=== PATIENT | female | born 1995 | race African-American/Black ===

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

== ENCOUNTER 2019-05-21 07:45 | Inpatient (IN) | payer OTHER ==
[2019-05-21] MEDS ORDERED: diphenhydrAMINE 50 MG/ML 1 ML VIAL IVP PRN ×2 (07:46)
[2019-05-21] MEDS ORDERED: diphenhydrAMINE 50 MG CAP PO PRN (07:46)
[2019-05-21] MEDS ORDERED: diphenhydrAMINE 25 MG CAP PO PRN (07:46)
[2019-05-21] MEDS ORDERED: HYDROCORTISONE 2.5% RECTAL CREAM 30 GM TUBE RECTAL PRN (07:46)
[2019-05-21] MEDS ORDERED: LANOLIN CREAM 5 GM TUBE TOPICAL PRN (07:46)
[2019-05-21] MEDS ORDERED: SIMETHICONE 80 MG CHEWABLE PO PRN (07:46)
[2019-05-21] MEDS ORDERED: ZOLPIDEM 5 MG TAB PO PRN (07:46)
[2019-05-21] MEDS ORDERED: BENZOCAINE/MENTHOL SPRAY 1 GM/SPRAY AEROSOL TOPICAL PRN (07:46)
[2019-05-21] MEDS ORDERED: WITCH HAZEL 1 EACH MED..PAD TOPICAL PRN (07:46)
[2019-05-21] MEDS ORDERED: OXYTOCIN 20 UNITS/1000 ML NS 1,000 ML IV SCH (08:00)
[2019-05-21] MEDS ORDERED: METHYLERGONOVINE 0.2 MG/ML 1 ML AMP IM PRN (08:05)
[2019-05-21] MEDS ORDERED: CARBOPROST TROMETHAMINE 250 MCG/ML 1 ML AMP IM PRN (08:05)
[2019-05-21] MEDS ORDERED: OXYTOCIN 10 UNIT/ML 1 ML VIAL IM PRN (08:05)
[2019-05-21] MEDS ORDERED: TERBUTALINE 1 MG/ML VIAL SQ PRN (08:05)
[2019-05-21] MEDS ORDERED: LIDOCAINE 0.5% (PF) 5 MG/ML (50 ML SDV) SQ PRN (08:05)
--- NOTE | 2019-05-21 08:05 | P.HPOB ---
History of Present Illness H&P Date: 05/21/19 Chief Complaint: Labor at term This is a 23-year-old 3 para 1011 woman who reports an estimated due date of 05/23/2019 who presents by EMS in advanced active labor. She reports onset of contractions several hours ago. She reports rupture of membranes at 6 AM. She has had no care throughout her . She did have an ultrasound at [address] a gave her due date of 05/23. She reports one previous term vaginal delivery 2 years ago and one miscarriage. She admits to marijuana use in the and tobacco. No alcohol use. She denies any chronic medical problems. Past Medical History Past Medical History: Asthma History of Any Multi-Drug Resistant Organisms: None Reported Past Surgical History: No Surgical Hx Reported Past Psychological History: No Psychological Hx Reported Smoking Status: Current every day smoker Past Alcohol Use History: Occasional Past Drug Use History: Marijuana Medications and Allergies Home Medications Medication Instructions Recorded Confirmed Type No Known Home Medications 05/21/19 05/21/19 History Allergies Allergy/AdvReac Type Severity Reaction Status Date / Time No Known Allergies Allergy Verified 05/21/19 07:51 Exam Intake and Output 05/20/19 05/21/19 05/21/19 22:59 06:59 14:59 Other: Weight 91.626 kg Visibly gravid actively laboring female. Cervix 9 cm dilated. Delivery eminent. Assessment and Plan (1) Insufficient care Current Visit: Yes Status: Acute Code(s): O09.30 - SUPRVSN OF PREG W INSUFFICIENT ANTENAT CARE, UNSP TRIMESTER SNOMED Code(s): 5214135777103 (2) Spontaneous onset of labor Current Visit: Yes Status: Acute Code(s): GPT5774 - SNOMED Code(s): 51764633 (3) Spontaneous rupture of membranes Current Visit: Yes Status: Acute Code(s): TEA5338 - SNOMED Code(s): 435568388 Plan: Admitted in active labor. Anticipate normal spontaneous vaginal delivery.
--- NOTE | 2019-05-21 08:07 | P.PROBDLV ---
Vaginal Delivery Note - . Vaginal Delivery Note: Findings: Female in the vertex presentation dictation with Apgars of 7 at 1 minute and 9 at 5 minutes. Weight pending. First-degree perineal laceration. Intact, three-vessel cord placenta noted. Terminal meconium. EBL 150 mL's. Delivery summary: This is a 23-year-old 3 para 1011 woman who presented on at term in advanced active labor having had spontaneous rupture of membranes. She's had no care. History significant for previous spontaneous vaginal delivery. Following admission she was noted to be 9 cm dilated with active urge to push. She was able to be repositioned on the bed and with uncontrolled effort the head did deliver from the right occiput anterior position. The anterior followed by the posterior shoulders were delivered with the maternal modified Yazmin position. The resting delivered spontaneously onto the field. The nose and mouth were bulb suctioned. Cord was clamped and cut. Apgars were 7 at 1 minute and 9 at 5 minutes. Weight pending. An intact, three-vessel cord placenta was then expressed after a short third stage. The patient received Pitocin intramuscularly. The uterus was massaged and was noted to firm at the level of the umbilicus. The perineum was inspected and a first- degree laceration that was bleeding was noted. This was infused with lidocaine and repaired with a single stitch of 3-0 Vicryl suture. The rest of the finding was inspected and no further lacerations were noted.
[2019-05-21] MEDS ORDERED: LACTATED RINGERS 1,000 ML IV SCH (08:15)
[2019-05-21 08:43] LABS: Appearance,Urine Clear (Clear); Bilirubin,Urine Negative (Negative); Blood,Urine Moderate (Negative); Color,Urine Yellow; Glucose,Urine (UA) Negative (Negative); Ketones,Urine 2+ (Negative); Leukocyte Esterase,Urine Small (Negative); Mucus,Urine Few /hpf; Nitrite,Urine Negative (Negative); Protein,Urine 1+ (Negative); RBC,Urine 146 /hpf (0-5); Specific Gravity,Urine 1.028 (1.001-1.035); Squamous Epithelial Cell,Urine 1 /hpf (0-4); Urobilinogen,Urine <2.0 mg/dL (<2.0); WBC,Urine 1 /hpf (0-5)
[2019-05-21 08:46] LABS: Amphetamine Screen,Urine Not Detected (NotDetected); Barbiturate Screen,Urine Not Detected (NotDetected); Benzodiazepines Screen,Urine Not Detected (NotDetected); Cocaine Screen,Urine Not Detected (NotDetected); Methadone Screen, Urine Not Detected (NotDetected); Opiate Screen,Urine Not Detected (NotDetected); Oxycodone Screen, Urine Not Detected (NotDetected); Phencyclidine Screen,Urine Not Detected (NotDetected); Tricyclic Antidepressant,Urine Not Detected (NotDetected); Urn Cannabinoid Scrn Detected (NotDetected)
[2019-05-21] MEDS: IBUPROFEN 600 MG TAB PO PRN ×2 (08:58→20:12)
[2019-05-21] MEDS: ACETAMINOPHEN TAB 325 MG TAB PO PRN (10:14)
[2019-05-21] MEDS: SENNOSIDES-DOCUSATE SODIUM 1 EACH TAB PO SCH ×2 (10:18→20:11)
[2019-05-21 10:45] LABS: Glucose,Whole Blood 106 mg/dL (75-99)
[2019-05-21 21:03] LABS: Hepatitis B Surface Antigen Non-Reactive (Non-Reactive)
[2019-05-22] MEDS: IBUPROFEN 600 MG TAB PO PRN ×2 (04:55→17:02)
[2019-05-22 07:53] LABS: Basophils # (A) 0.1 k/uL (0-0.2); Basophils % (A) 1 %; Eosinophils # (A) 0.1 k/uL (0-0.7); Eosinophils % (A) 1 %; HCT 31.6 % (34.0-46.0); HGB 9.8 gm/dL (11.4-16.0); Hypochromasia Slight; Lymphocytes # (A) 1.5 k/uL (1.0-4.8); Lymphocytes % (A) 20 %; MCH 25.3 pg (25.0-35.0); MCHC 31.2 g/dL (31.0-37.0); MCV 81.1 fL (80.0-100.0); Mean Platelet Volume 9.2; Monocytes # (A) 0.4 k/uL (0-1.0); Monocytes % (A) 6 %; Neutrophils # (A) 5.1 k/uL (1.3-7.7); Neutrophils % (A) 69 %; Platelet Count 209 k/uL (150-450); RBC 3.89 m/uL (3.80-5.40); RDW 14.7 % (11.5-15.5); WBC 7.4 k/uL (3.8-10.6)
[2019-05-22] MEDS: SENNOSIDES-DOCUSATE SODIUM 1 EACH TAB PO SCH ×2 (08:11→21:37)
[2019-05-22] MEDS: ACETAMINOPHEN TAB 325 MG TAB PO PRN ×3 (08:11→21:37)
[2019-05-22 09:43] VITALS: RESP 18
--- NOTE | 2019-05-22 13:28 | P.PNOBGVD ---
Subjective - Subjective Principal diagnosis: PPD 1 Interval history: Feeling well, moderate lochia and cramping Patient reports: Reports appetite normal, Reports voiding normally, Reports pain well controlled, Reports ambulating normally : doing well Objective - Latest Vital Signs Latest vital signs: Vital Signs Temp Pulse Resp BP 05/22/19 08:00 98.0 F 80 18 114/68 05/21/19 23:50 98.1 F 84 16 120/76 05/21/19 20:00 98.6 F 94 16 90/45 05/21/19 15:13 97.5 F L 77 18 124/68 Intake and Output 05/21/19 05/22/19 05/22/19 22:59 06:59 14:59 Other: # Voids 1 1 - Exam Extremities: Present: edema Abdomen: Present: normal appearance, soft. Absent: tenderness Uterus: Present: normal, firm - Labs Labs: Abnormal Lab Results - Last 24 Hours (Table) 05/22/19 Range/Units 06:59 Hgb 9.8 L (11.4-16.0) gm/dL Hct 31.6 L (34.0-46.0) % Assessment and Plan (1) Insufficient care Current Visit: Yes Status: Acute Code(s): O09.30 - SUPRVSN OF PREG W INSUFFICIENT ANTENAT CARE, UNSP TRIMESTER SNOMED Code(s): 7289872172422 (2) Spontaneous onset of labor Current Visit: Yes Status: Acute Code(s): XMJ4312 - SNOMED Code(s): 84937393 (3) Spontaneous rupture of membranes Current Visit: Yes Status: Acute Code(s): UFK9505 - SNOMED Code(s): 641258167 (4) Perineal laceration with delivery, first degree Current Visit: Yes Status: Acute Code(s): O70.0 - FIRST DEGREE PERINEAL LACERATION DURING DELIVERY SNOMED Code(s): 536994331 (5) Normal spontaneous vaginal delivery Current Visit: Yes Status: Acute Code(s): O80 - ENCOUNTER FOR FULL-TERM UNCOMPLICATED DELIVERY SNOMED Code(s): 59418731 Plan: PPD 1 s/p NSV, term, no care. Events reviewed with Keira. She does not have a primary physician. Hs of celexa in the past for depression after her first delivery, but stopped some time ago. She decline restarting now prophylactically. is currently in nursery, doing well. youth services specialist consult pending. Home later today or tomorrow pending peds and SW.
[2019-05-22 15:04] LABS: C. trachomatis,PCR Negative (Neg,Equiv); Chlamydia trachomatis Source Urine; N. gonorrhoeae,PCR Negative (Neg,Equiv); Neisseria Source Urine
[2019-05-23] MEDS: IBUPROFEN 600 MG TAB PO PRN (01:41)
[2019-05-23] MEDS: SENNOSIDES-DOCUSATE SODIUM 1 EACH TAB PO SCH (07:29)
[2019-05-23] MEDS: ACETAMINOPHEN TAB 325 MG TAB PO PRN (07:30)
[2019-05-23 07:41] VITALS: BP 137/82; PULSE 89; TEMP 98.9
--- NOTE | 2019-05-23 09:15 | P.DS ---
Providers Date of admission: 05/21/19 07:45 Expected date of discharge: 05/23/19 Attending physician: Meseret Noble Primary care physician: Stated None - Discharge Diagnosis(es) (1) Insufficient care Current Visit: Yes Status: Acute (2) Spontaneous onset of labor Current Visit: Yes Status: Acute (3) Spontaneous rupture of membranes Current Visit: Yes Status: Acute (4) Perineal laceration with delivery, first degree Current Visit: Yes Status: Acute (5) Normal spontaneous vaginal delivery Current Visit: Yes Status: Acute Hospital Course: This is a 23-year-old 3 now para 2012 woman who presented with spontaneous advanced active labor at approximately 39+ weeks gestation. She had no significant care however did have a due date of 05/23/2019 based on second trimester ultrasound. She presented by EMS to the emergency room was found to have advanced cervical dilation. By the time she reached the [facility] she was completely dilated. She had a rapid delivery of a liveborn female infant over a first degree perineal laceration with Apgars of 7 at 1 minute and 9 at 5 minutes. Please see the delivery summary for details. There was terminal meconium. The patient's course was unremarkable. Her routine labs were all within normal limits other than mild anemia with a hemoglobin of 9.8 and positive urine drug screen for THC. On day #1 she did have some on moderate to heavy lochia but by day #2 this had resolved to some mild bleeding. Her vital signs were stable. The uterus was firm and her perineum was well healing. rn medical inpatient services consult was pending. She is discharged home on day #2 with routine instructions for care and follow-up. Of note she has a history of being on Celexa for depression with her first delivery. We discussed this and it did offer to restart this prescription and she declines at this time. She is to follow-up in the office with any worsening the mood or signs of depression. Contact information was provided. Procedures: Normal spontaneous vaginal delivery Patient Condition at Discharge: Good Plan - Discharge Summary New Discharge Prescriptions: No Action No Known Home Medications Discharge Medication List No Known Home Medications 05/21/19 [History] Follow up Appointment(s)/Referral(s): Meseret Noble MD [STAFF PHYSICIAN] - 4 Weeks Activity/Diet/Wound Care/Special Instructions: Follow-up in the office in 4 weeks . Call with any concerning signs or symptoms including heavy vaginal bleeding, severe abdominal pain, fever greater than 101, swelling or redness of the lower extremities, foul vaginal discharge, or signs of depression. Nothing in the vagina for 6 weeks after delivery, specifically no intercourse. Discharge Disposition: HOME SELF-CARE
[2019-05-26 20:43] LABS: HIV 1 AB Non-Reactive (Non-Reactive); HIV 2 AB Non-Reactive (Non-Reactive); HIV AB P24 Non-Reactive (Non-Reactive); HIV P24 AG Non-Reactive (Non-Reactive)
== END 2019-05-23 13:30 | disposition home or self-care (01) | DRG 806 ==
LOC: 4FBP 07:45
PROVIDERS: ADMIT Obstetrics & Gynecology; ATTEND Obstetrics & Gynecology
PROC: 0HQ9XZZ Repair Perineum Skin, External Approach (ICD-10-PCS; principal; 2019-05-21)
PROC: 10E0XZZ Delivery of Products of Conception, External Approach (ICD-10-PCS; principal; 2019-05-21)
DX: O77.0 Labor and delivery complicated by meconium in amniotic fluid (principal); O99.324 Drug use complicating childbirth; Z37.0 Single live birth; F12.90 Cannabis use, unspecified, uncomplicated; O70.0 First degree perineal laceration during delivery; O62.3 Precipitate labor; O99.02 Anemia complicating childbirth; D64.9 Anemia, unspecified; O99.334 Smoking (tobacco) complicating childbirth; F17.200 Nicotine dependence, unspecified, uncomplicated; O99.52 Diseases of the respiratory system complicating childbirth; J45.909 Unspecified asthma, uncomplicated; Z3A.39 39 weeks gestation of pregnancy
CPT/HCPCS: 80306; 81001; 82947; 85025; 86762; 86780; 86850; 86900; 86901; 87340; 87390; 87491; 87591; 88307

== ENCOUNTER 2021-03-09 10:04 | Emergency (ER) | payer OTHER ==
[2021-03-09 10:56] VITALS: RESP 18; TEMP 99
[2021-03-09] MEDS ORDERED: LIDOCAINE 1% INJ 10MG/ML (20 ML MDV) SQ ONE (11:31)
[2021-03-09] MEDS ORDERED: CLINDAMYCIN 150 MG CAP PO STA ×2 (11:58→11:59)
--- NOTE | 2021-03-09 11:59 | ED ---
General Adult HPI - General Chief complaint: Skin/Abscess/Foreign Body Stated complaint: Skin/Abscess on tailbone Time Seen by Provider: 03/09/21 11:19 Source: patient, RN notes reviewed Mode of arrival: ambulatory Limitations: no limitations - History of Present Illness Initial comments: 25-year-old female with a past medical history of seizures presents to the emergency room for a chief complaint of abscess. Patient has an abscess near her tailbone. Patient states this has been ongoing for a week. She was seen at [facility] where this was not drained and patient was started on Bactrim. Patient states she is finishing her course today and the pain and swelling is worse. Patient denies fevers. States it is painful to sit on the area. He has systems - Related Data Previous Rx's Medication Instructions Recorded Clindamycin [Cleocin] 300 mg PO Q8H 7 Days #42 cap 03/09/21 Allergies Allergy/AdvReac Type Severity Reaction Status Date / Time No Known Allergies Allergy Verified 03/09/21 10:56 Review of Systems ROS Statement: Those systems with pertinent positive or pertinent negative responses have been documented in the HPI. ROS Other: All systems not noted in ROS Statement are negative. Past Medical History Past Medical History: Asthma Additional Past Medical History / Comment(s): seizure in july 2018, never found cause, only one History of Any Multi-Drug Resistant Organisms: None Reported Past Surgical History: No Surgical Hx Reported Additional Past Surgical History / Comment(s): D&C Past Anesthesia/Blood Transfusion Reactions: No Reported Reaction Past Psychological History: Anxiety, Depression Smoking Status: Current every day smoker Past Alcohol Use History: Occasional Past Drug Use History: Marijuana - Past Family History Mother Family Medical History: Hypertension General Exam Limitations: no limitations General appearance: alert, in no apparent distress Head exam: Present: atraumatic Eye exam: Present: normal appearance, PERRL, EOMI. Absent: scleral icterus, conjunctival injection ENT exam: Present: normal exam, mucous membranes moist Neck exam: Present: normal inspection, full ROM. Absent: tenderness Respiratory exam: Present: normal lung sounds bilaterally. Absent: respiratory distress, wheezes Cardiovascular Exam: Present: regular rate, normal rhythm, normal heart sounds GI/Abdominal exam: Present: soft, normal bowel sounds. Absent: distended, tenderness Back exam: Present: other (patient has a 2 cm x 2 cm abscess in the gluteal cleft right buttock.) Course Vital Signs 03/09/21 10:52 Temperature 99.0 F Pulse Rate 110 H Respiratory 18 Rate Blood Pressure 107/61 O2 Sat by Pulse 97 Oximetry Procedures - Incision & Drainage Consent Obtained: verbal consent, written consent Indication: abscess Site: buttock Size (cm): 2 Anesthetic Used: lidocaine 1% Amount (mLs): 2 I&D Cleaning Method: Chloroprep Sterile Field Used?: Yes Scalpel Used: #11 I&D Drainage Obtained: Pus, Blood Complications: bleeding Patient Tolerated Procedure: no complications Medical Decision Making - Medical Decision Making abscess was incised and drained, purulent material expelled. Patient will be started on clindamycin as she has already finished her Bactrim. She will continue to do warm sitz baths and follow-up with her doctor. She will return here for any worsening symptoms. Disposition Clinical Impression: Abscess Disposition: HOME SELF-CARE Condition: Good Instructions (If sedation given, give patient instructions): Abscess (ED) Additional Instructions: please take antibiotic as directed. Do warm compresses or warm soaks several times daily. Follow-up with your doctor. Return for any worsening symptoms. Prescriptions: Clindamycin [Cleocin] 300 mg PO Q8H 7 Days #42 cap Is patient prescribed a controlled substance at d/c from ED?: No Referrals: Kumar Madrid MD [REFERRING] - 1-2 days Time of Disposition: 11:58
[2021-03-09 12:02] LABS: Appearance,Urine Cloudy (Clear); Bacteria,Urine Rare /hpf; Bilirubin,Urine Negative (Negative); Blood,Urine Moderate (Negative); Color,Urine Yellow; Glucose,Urine (UA) Negative (Negative); Ketones,Urine Negative (Negative); Leukocyte Esterase,Urine Large (Negative); Mucus,Urine Rare /hpf; Nitrite,Urine Negative (Negative); Protein,Urine Trace (Negative); RBC,Urine 20 /hpf (0-5); Squamous Epithelial Cell,Urine 12 /hpf (0-4); Urobilinogen,Urine <2.0 mg/dL (<2.0); WBC,Urine 20 /hpf (0-5)
[2021-03-09 12:39] VITALS: BP 111/67; PULSE 100
[2021-03-11 13:47] LABS: C. trachomatis,PCR Negative (Neg,Equiv); Chlamydia trachomatis Source Urine; N. gonorrhoeae,PCR Negative (Neg,Equiv); Neisseria Source Urine
== END 2021-03-09 12:54 | disposition home or self-care (01) ==
LOC: EC 10:04
DX: L02.31 Cutaneous abscess of buttock (principal); J45.909 Unspecified asthma, uncomplicated; F41.9 Anxiety disorder, unspecified; F32.A Depression, unspecified; F17.200 Nicotine dependence, unspecified, uncomplicated; F12.90 Cannabis use, unspecified, uncomplicated
CPT/HCPCS: 99283; 10060; 81001; 81025; 87491; 87591; 87086; J2001

== ENCOUNTER 2021-03-15 13:22 | Emergency (ER) | payer OTHER ==
[2021-03-15 13:51] VITALS: BP 132/84; PULSE 79; RESP 19; TEMP 97.6
--- NOTE | 2021-03-15 16:04 | ED ---
Recheck HPI - General Chief Complaint: Recheck/Abnormal Lab/Rx Stated Complaint: Covid Test Time Seen by Provider: 03/15/21 16:02 Source: patient, RN notes reviewed Mode of arrival: ambulatory Limitations: no limitations - History of Present Illness Initial Comments: patient is a 25-year-old female here requesting a Covid test. Patient is concerned for recent exposure as her roommate has some mild symptoms. She denies any symptoms herself, no recent cough or cold, no fevers or chills. No history of asthma. She has no further complaints. Her vitals are stable upon arrival. - Related Data Previous Rx's Medication Instructions Recorded Clindamycin [Cleocin] 300 mg PO Q8H 7 Days #42 cap 03/09/21 Allergies Allergy/AdvReac Type Severity Reaction Status Date / Time No Known Allergies Allergy Verified 03/15/21 13:53 Review of Systems ROS Statement: Those systems with pertinent positive or pertinent negative responses have been documented in the HPI. ROS Other: All systems not noted in ROS Statement are negative. Past Medical History Past Medical History: Asthma Additional Past Medical History / Comment(s): seizure in july 2018, never found cause, only one History of Any Multi-Drug Resistant Organisms: None Reported Past Surgical History: No Surgical Hx Reported Additional Past Surgical History / Comment(s): D&C Past Anesthesia/Blood Transfusion Reactions: No Reported Reaction Past Psychological History: Anxiety, Depression Smoking Status: Current every day smoker Past Alcohol Use History: Occasional Past Drug Use History: Marijuana - Past Family History Mother Family Medical History: Hypertension General Exam - General Exam Comments Initial Comments: GENERAL: Patient is well-developed and well-nourished. Patient is nontoxic and in no acute distress. HEAD: Atraumatic, normocephalic. EYES: Pupils equal round and reactive to light, extraocular movements intact, sclera anicteric, conjunctiva are normal. Eyelids were unremarkable. ENT: Moist mucous membranes. NECK: Normal range of motion, supple without lymphadenopathy or JVD. LUNGS: Unlabored respirations. Breath sounds clear to auscultation bilaterally and equal. No wheezes rales or rhonchi. HEART: Regular rate and rhythm without murmurs, rubs or gallops. MUSCULOSKELETAL: Normal extremities with adequate strength and normal range of motion, no pitting or edema. No clubbing or cyanosis. NEUROLOGICAL: Patient is alert and oriented x 3. SKIN: Warm, Dry, normal turgor, no rashes or lesions noted. Limitations: no limitations Course Vital Signs 03/15/21 13:49 Temperature 97.6 F Pulse Rate 79 Respiratory 19 Rate Blood Pressure 132/84 O2 Sat by Pulse 99 Oximetry Medical Decision Making - Medical Decision Making patient is a 25-year-old female here for covid test. She has no symptoms, her rapid test is negative. Patient is stable for discharge. - Lab Data Lab Results 03/15/21 Range/Units 13:54 Coronavirus (PCR) Not Detected (Not Detectd) Disposition Clinical Impression: Lab test negative for COVID-19 virus Disposition: HOME SELF-CARE Condition: Stable Instructions (If sedation given, give patient instructions): Normal Exam (ED) Additional Instructions: Please return to the Emergency Department if symptoms worsen or any other concerns. Is patient prescribed a controlled substance at d/c from ED?: No Referrals: Kumar Madrid MD [Primary Care Provider] - 1-2 days Time of Disposition: 16:04
== END 2021-03-15 16:34 | disposition home or self-care (01) ==
LOC: EC 13:22
DX: Z11.52 Encounter for screening for COVID-19 (principal); Z20.822 Contact with and (suspected) exposure to COVID-19; J45.909 Unspecified asthma, uncomplicated; F17.200 Nicotine dependence, unspecified, uncomplicated; F12.90 Cannabis use, unspecified, uncomplicated
CPT/HCPCS: 87635; 99282